=== PATIENT | female | born 1965 | race Native Hawaiian/Other Pacific Islander ===

== ENCOUNTER 2017-09-14 16:13 | Emergency (ER) | payer OTHER ==
[~2017-09-14] VITALS: Ht 165.1 cm; Wt 69.4 kg
[2017-09-14 17:02] LABS: PLATELET COUNT 233 K/uL (152-353)
[2017-09-14 17:10] LABS: POTASSIUM 4.7 mmol/L (3.6-5.2); SODIUM 133 mmol/L (136-145)
[2017-09-14 17:32] LABS: PARTIAL THROMBOPLASTIN TIME 26.1 SECONDS (24.5-33.6)
[2017-09-14 17:53] VITALS: BP 154/76; TEMP 98.1
== END 2017-09-14 17:53 | disposition home or self-care (01) ==
LOC: ED 16:13
DX: R07.89 Other chest pain (principal)
CPT/HCPCS: 36415; 80053; 82550; 84484; 85027; 85610; 85730; 93005; 99284